=== PATIENT | female | born 1945 | race Caucasian/White ===

== ENCOUNTER 2021-08-05 07:56 | Inpatient (IN) | payer MEDICARE ==
[2021-08-05 08:22] LABS: #Basophils 0.1 10x3/uL (0.0-0.2); #Eosinphils 0.1 10x3/uL (0.0-0.5); #Monocytes 0.4 10x3/uL (0.0-1.1); %Eosinophils 2.1 % (0.0-6.0); %Lymphocytes 37.9 % (18.0-47.0); %Monocytes 6.3 % (0.0-10.0); %Neutrophils 52.5 % (40.0-75.0); Hemoglobin 14.7 g/dL (12.0-15.5); Mean Corpuscular HGB CONC 35.8 g/dL (32.0-36.0); Mean Corpuscular Hemoglobin 32.2 pg (27.0-33.0); Mean Corpuscular Volume 90.1 fl (81.6-98.3); Mean Platelet Volume 9.9 fl (7.4-10.4); Platelet Count 235 10x3/uL (150-450); RBC Distribution Width 12.6 % (11.5-14.5); Red Blood Cell (RBC) Count 4.56 10x6/uL (3.90-5.03); White Blood Cell (WBC) Count 5.8 10x3/uL (3.5-10.5)
[2021-08-05] MEDS ORDERED: Aspirin Chewable 81 MG TAB ONE (08:25)
[2021-08-05] MEDS ORDERED: Nitroglycerin 0.4 MG TAB 1 EACH ONE ×2 (08:26→10:19)
[2021-08-05] MEDS ORDERED: Lidocaine Viscous Sol 2% 15 ml UD Cup ONE (08:42)
[2021-08-05] MEDS ORDERED: Mag-Al Plus 1200 MG/1200 MG/120 MG/30 ML UDCUP ONE (08:42)
[2021-08-05 08:53] LABS: ALT (SGPT) 18 U/L (8-55); AST (SGOT) 17 U/L (5-34); Albumin 4.2 g/dL (3.4-4.8); Alkaline Phosphatase 46 U/L (40-110); Anion Gap 15 mmol/L (10-20); BUN (Urea Nitrogen) 10 mg/dL (9.8-20.1); Bilirubin, Total 0.4 mg/dL (0.2-1.2); Calc. Creatinine Clearance 0 mL/min (70-130); Calcium 9.4 mg/dL (7.8-10.44); Carbon Dioxide 24 mmol/L (23-31); Chloride 106 mmol/L (98-107); Globulin 2.7 g/dL (2.4-3.5); Glucose 103 mg/dL (83-110); Lipase 41 U/L (8-78); Potassium 4.2 mmol/L (3.5-5.1); Protein, Total 6.9 g/dL (5.8-8.1); Sodium 141 mmol/L (136-145)
[2021-08-05] MEDS ORDERED: Nitroglycerin 0.4 MG TAB (25 Tab Bottle) SL PRN (09:31)
[2021-08-05] MEDS ORDERED: Acetaminophen 325 MG TAB ONE (10:19)
[2021-08-05 10:36] LABS: SARS-CoV-2 NAA Rapid Test Not Detected (NotDetected)
[2021-08-05 11:44] LABS: Troponin I Less than 0.010 ng/mL (< 0.028)
[2021-08-05 14:51] LABS: Troponin I Less than 0.010 ng/mL (< 0.028)
[2021-08-05 15:21] VITALS: BMI 26.0
[2021-08-06] MEDS ORDERED: Acetaminophen 325 MG TAB PO PRN (03:56)
[2021-08-06] MEDS ORDERED: Famotidine 20 MG TAB PO SCH (04:00)
[2021-08-06 05:49] LABS: #Basophils 0.1 10x3/uL (0.0-0.2); #Eosinphils 0.1 10x3/uL (0.0-0.5); #Monocytes 0.4 10x3/uL (0.0-1.1); #Neutrophils 2.6 10x3/uL (1.5-8.4); %Basophils 1.1 % (0.0-2.0); %Eosinophils 2.4 % (0.0-6.0); %Lymphocytes 39.1 % (18.0-47.0); %Monocytes 7.7 % (0.0-10.0); %Neutrophils 49.5 % (40.0-75.0); Anion Gap 15 mmol/L (10-20); BUN (Urea Nitrogen) 13 mg/dL (9.8-20.1); Calc. Creatinine Clearance 69 mL/min (70-130); Calcium 9.1 mg/dL (7.8-10.44); Carbon Dioxide 27 mmol/L (23-31); Cardiac Risk 6.1 (Less than 4.5); Chloride 105 mmol/L (98-107); Cholesterol 225 mg/dl (< 200 Desired); Glucose 102 mg/dL (83-110); HDL Cholesterol 37 mg/dL (>60 Neg Risk); Hemoglobin 13.9 g/dL (12.0-15.5); LDL Cholesterol, Calculated 139 mg/dL; Mean Corpuscular HGB CONC 35.5 g/dL (32.0-36.0); Mean Corpuscular Hemoglobin 32.3 pg (27.0-33.0); Mean Corpuscular Volume 91.2 fl (81.6-98.3); Platelet Count 228 10x3/uL (150-450); Potassium 4.1 mmol/L (3.5-5.1); RBC Distribution Width 12.9 % (11.5-14.5); Sodium 143 mmol/L (136-145); Triglycerides 245 mg/dL (Less than 150); White Blood Cell (WBC) Count 5.3 10x3/uL (3.5-10.5)
[2021-08-06] MEDS: Aspirin Chewable 81 MG TAB PO SCH (07:10)
[2021-08-06] MEDS ORDERED: Iopamidol 300 61% 100 ML VIAL FS ONE (08:00)
[2021-08-06] MEDS ORDERED: Enoxaparin Sodium 40 MG/0.4 ML SYRINGE SC SCH (09:00)
[2021-08-06] MEDS ORDERED: Lidocaine 1% 20 ML MDV ONE (09:58)
[2021-08-06] MEDS ORDERED: Heparin 10,000 UNITS/ 10 ML VIAL ONE (09:59)
[2021-08-06] MEDS ORDERED: Nitroglycerin 50 MG/250 ML BOT 250 ML ONE (09:59)
[2021-08-06] MEDS ORDERED: Fentanyl 100 MCG/2 ML VIAL ONE (09:59)
[2021-08-06] MEDS ORDERED: Adenosine 6 MG/2 ML VIAL ONE (09:59)
[2021-08-06] MEDS ORDERED: Sodium Chloride 0.9% 1,000 ML ONE (10:00)
[2021-08-06] MEDS ORDERED: Midazolam HCl 2 mg/2 ml Vial ONE (10:00)
[2021-08-06] MEDS ORDERED: Clopidogrel Bisulfate 300 MG TAB ONE (11:12)
[2021-08-06] MEDS: Sodium Chloride 0.9% 1,000 ML IV SCH ×2 (13:22→22:30)
[2021-08-06] MEDS: Famotidine 20 MG TAB PO SCH (20:33)
[2021-08-06] MEDS ORDERED: Atorvastatin Calcium 40 MG TAB PO SCH (21:00)
[2021-08-07 05:22] LABS: #Basophils 0.1 10x3/uL (0.0-0.2); #Eosinphils 0.2 10x3/uL (0.0-0.5); #Monocytes 0.5 10x3/uL (0.0-1.1); #Neutrophils 2.4 10x3/uL (1.5-8.4); %Eosinophils 3.6 % (0.0-6.0); %Lymphocytes 36.8 % (18.0-47.0); %Monocytes 9.1 % (0.0-10.0); %Neutrophils 49.3 % (40.0-75.0); Hemoglobin 13.5 g/dL (12.0-15.5); Mean Corpuscular HGB CONC 34.9 g/dL (32.0-36.0); Mean Corpuscular Hemoglobin 32.2 pg (27.0-33.0); Mean Corpuscular Volume 92.4 fl (81.6-98.3); Mean Platelet Volume 9.6 fl (7.4-10.4); Platelet Count 212 10x3/uL (150-450); RBC Distribution Width 12.8 % (11.5-14.5); Red Blood Cell (RBC) Count 4.19 10x6/uL (3.90-5.03)
[2021-08-07 05:38] LABS: ALT (SGPT) 14 U/L (8-55); AST (SGOT) 15 U/L (5-34); Albumin 3.6 g/dL (3.4-4.8); Alkaline Phosphatase 46 U/L (40-110); Anion Gap 16 mmol/L (10-20); BUN (Urea Nitrogen) 9 mg/dL (9.8-20.1); Bilirubin, Total 0.3 mg/dL (0.2-1.2); Calc. Creatinine Clearance 70 mL/min (70-130); Calcium 8.8 mg/dL (7.8-10.44); Carbon Dioxide 24 mmol/L (23-31); Chloride 108 mmol/L (98-107); Globulin 2.6 g/dL (2.4-3.5); Glucose 101 mg/dL (83-110); Potassium 4.5 mmol/L (3.5-5.1); Protein, Total 6.2 g/dL (5.8-8.1); Sodium 143 mmol/L (136-145)
[2021-08-07] MEDS ORDERED: Thyroid 60 MG TAB PO SCH (06:00)
[2021-08-07] MEDS ORDERED: Clopidogrel Bisulfate 75 MG TAB PO SCH (09:00)
[2021-08-07] MEDS: Famotidine 20 MG TAB PO SCH (09:33)
[2021-08-07] MEDS: Aspirin Chewable 81 MG TAB PO SCH (09:33)
[2021-08-07] MEDS: Sodium Chloride 0.9% 1,000 ML IV SCH (09:40)
[2021-08-07 12:15] VITALS: BP 154/100; TEMP 99.1
[2021-08-07 14:21] LABS: Hemoglobin A1c 5.4 % (4.0-6.0)
== END 2021-08-07 12:40 | disposition home or self-care (01) | DRG 247 ==
LOC: CSHERS 07:56 → CSHTELE 09:30 → INTOOBSV 09:30 → CSHTELE 14:33 → UNDOADMIN 14:33 → OBSVTOIN 08-07 09:45
PROVIDERS: ADMIT Hospitalist; ATTEND Family Medicine
PROC: 027034Z Dilation of Coronary Artery, One Artery with Drug-eluting Intraluminal Device, Percutaneous Approach (ICD-10-PCS; principal; 2021-08-06)
PROC: 4A023N7 Measurement of Cardiac Sampling and Pressure, Left Heart, Percutaneous Approach (ICD-10-PCS; 2021-08-06)
PROC: B2111ZZ Fluoroscopy of Multiple Coronary Arteries using Low Osmolar Contrast (ICD-10-PCS; 2021-08-06)
PROC: B2151ZZ Fluoroscopy of Left Heart using Low Osmolar Contrast (ICD-10-PCS; 2021-08-06)
PROC: B240ZZ3 Ultrasonography of Single Coronary Artery, Intravascular (ICD-10-PCS; 2021-08-06)
DX: I25.110 Atherosclerotic heart disease of native coronary artery with unstable angina pectoris (principal); I24.9 Acute ischemic heart disease, unspecified; E03.9 Hypothyroidism, unspecified; E78.5 Hyperlipidemia, unspecified; I10 Essential (primary) hypertension; K22.4 Dyskinesia of esophagus; Z20.822 Contact with and (suspected) exposure to COVID-19; Z90.710 Acquired absence of both cervix and uterus; Z82.49 Family history of ischemic heart disease and other diseases of the circulatory system; Z88.0 Allergy status to penicillin; Z79.890 Hormone replacement therapy
CPT/HCPCS: 36415; 71045; 80048; 80053; 80061; 83036; 83690; 84484; 85025; 92928; 92978; 93005; 93010; 93458; 94760; 97139; 99152; 99153; C1753; C1760; C1769; C1874; C1887; C9600; G0378; J0153; J1644; J2250; J3010; J7050; Q9967; U0002